=== PATIENT | female | born 1990 ===

== ENCOUNTER 2021-12-05 08:11 | Outpatient (CLI) | payer BC ==
[~2021-12-05 08:11] MED LIST: Iopamidol 300 61% 100 ML VIAL FS ONE
== END 2021-12-05 08:12 | disposition home or self-care (01) ==
LOC: CSHCT 08:11
PROVIDERS: ATTEND Student in an Organized Health Care Education/Training Program
DX: R19.02 Left upper quadrant abdominal swelling, mass and lump (principal); N83.292 Other ovarian cyst, left side; N83.291 Other ovarian cyst, right side
CPT/HCPCS: 74177; Q9967

== ENCOUNTER 2021-12-25 12:25 | Outpatient (CLI) | payer BC | END 2021-12-25 12:26 | disposition home or self-care (01) | LOC: CSHLAB 12:25 | PROVIDERS: ATTEND Student in an Organized Health Care Education/Training Program | DX: Z01.812 Encounter for preprocedural laboratory examination (principal); Z20.822 Contact with and (suspected) exposure to COVID-19; Z53.9 Procedure and treatment not carried out, unspecified reason | CPT/HCPCS: 84703; 85027; 86850; 86900; 86901; 87811 ==

== ENCOUNTER 2021-12-30 07:58 | Day surgery (SDC) | payer BC ==
[2021-12-25 13:31] LABS: Mean Corpuscular HGB CONC 31.9 g/dL (32.0-36.0); Mean Corpuscular Hemoglobin 29.3 pg (27.0-33.0); Mean Corpuscular Volume 91.7 fl (81.6-98.3); Mean Platelet Volume 10.6 fl (7.4-10.4); Platelet Count 357 10x3/uL (150-450); RBC Distribution Width 12.8 % (11.5-14.5); Red Blood Cell (RBC) Count 4.44 10x6/uL (3.90-5.03); White Blood Cell (WBC) Count 11.3 10x3/uL (3.5-10.5)
[2021-12-25 13:43] LABS: BHCG - Serum Negative (NEGATIVE); Pregs Control Background? CLEAR/WHITE (CLR/WHITE); Pregs Control Bar Appear? YES (CONTROL BAR)
[2021-12-26 13:37] VITALS: BMI 27.4
[2021-12-30] MEDS ORDERED: CeleCOXIB 100 MG CAP ONE (08:21)
[2021-12-30] MEDS ORDERED: Gabapentin 300 MG CAP ONE (08:21)
[2021-12-30] MEDS ORDERED: Lidocaine 1% MPF 2 ML VIAL ONE (08:30)
[2021-12-30] MEDS ORDERED: Famotidine/PF 20 mg/2ml Vial ONE (08:46)
[2021-12-30] MEDS ORDERED: Midazolam HCl 2 mg/2 ml Vial ONE (09:13)
[2021-12-30] MEDS ORDERED: Fentanyl 100 MCG/2 ML VIAL ONE ×3 (09:42→14:18)
[2021-12-30] MEDS ORDERED: Rocuronium Bromide 10 MG/ML (10ML VIAL) ONE (09:42)
[2021-12-30] MEDS ORDERED: PROPOFOL 20 ML ONE (09:42)
[2021-12-30] MEDS ORDERED: Lidocaine 2% PF 5 ML VIAL ONE (09:43)
[2021-12-30] MEDS ORDERED: CEFAZOLIN 2 GM VIAL ONE (10:14)
[2021-12-30] MEDS ORDERED: Bupivacaine PF 0.5% 30 ML VIAL ONE (10:17)
[2021-12-30] MEDS ORDERED: EPINEPHrine 1 MG/ML AMP ONE (10:17)
[2021-12-30] MEDS ORDERED: Dexamethasone 4 mg/ml Vial ONE (10:34)
[2021-12-30] MEDS ORDERED: Ketorolac Tromethamine 30 MG/ML VIAL ONE (10:34)
[2021-12-30] MEDS ORDERED: Ondansetron PF 4 MG/2 ML Vial ONE ×2 (10:34→15:01)
[2021-12-30] MEDS ORDERED: Tranexamic Acid 1,000 MG/10 ML VIAL ONE (13:05)
[2021-12-30] MEDS ORDERED: HYDROcodone/Acetaminophen 5/325 mg Tablet ONE (15:45)
== END 2021-12-30 17:15 | disposition home or self-care (01) ==
LOC: CSHSDC 07:58
PROVIDERS: ATTEND Student in an Organized Health Care Education/Training Program
PROC: 8E0W4CZ Robotic Assisted Procedure of Trunk Region, Percutaneous Endoscopic Approach (ICD-10-PCS; principal; 2021-12-30)
PROC: 0UB24ZZ Excision of Bilateral Ovaries, Percutaneous Endoscopic Approach (ICD-10-PCS; principal; 2021-12-30)
PROC: 0UB94ZZ Excision of Uterus, Percutaneous Endoscopic Approach (ICD-10-PCS; principal; 2021-12-30)
DX: N83.291 Other ovarian cyst, right side (principal); N80.0 Endometriosis of uterus; N80.1 Endometriosis of ovary; N80.2 Endometriosis of fallopian tube; N80.3 Endometriosis of pelvic peritoneum; D27.1 Benign neoplasm of left ovary; D25.2 Subserosal leiomyoma of uterus; J45.909 Unspecified asthma, uncomplicated; Z79.3 Long term (current) use of hormonal contraceptives; Z79.899 Other long term (current) drug therapy; Z91.040 Latex allergy status; Z20.822 Contact with and (suspected) exposure to COVID-19
CPT/HCPCS: 36415; 84703; 85027; 86850; 86900; 86901; 87811; 88305; 88331; C1713; J0171; J0690; J1100; J1885; J2001; J2250; J2405; J2704; J3010; S0020; S0028